=== PATIENT | female | born 1955 | race Caucasian/White ===

== ENCOUNTER 2018-03-22 16:22 | Emergency (ER) | payer OTHER ==
[~2018-03-22] VITALS: Ht 160 cm; Wt 64.4 kg
--- NOTE | ~2018-03-22 | EKG ---
[address] [address] ELECTROCARDIOGRAM REPORT Name: DOROTHY BLACK Room #: [facility]#: [id number] Admission: 03/22/18 Attend Phys: Discharge: 03/22/18 Date of : 51 Report #: [id number] THIS REPORT FOR: //name// [facility] ED Test Date: 2018-03-22 Test Time: 17:52:45 Pat Name: DOROTHY BLACK Department: Room: Gender: F Entry Table Operator: PARMJIT : 1955 Requested By: Leslie Jaimes Order Number: [id number] MD: Urbano Urbano Measurements Intervals [place] Rate: 76 P: 45 NM: 158 QRS: -2 QRSD: 92 T: 54 QT: 379 QTc: 427 Interpretive Statements Sinus rhythm Atrial premature complex Compared to ECG 09/11/2017 17:06:10 Atrial premature complex(es) now present Electronically Signed On 03-23-2018 8:19:43 CDT by Urbano Urbano [email or web address] <ELECTRONICALLY SIGNED> By: Urbano Urbano MD, [facility] 03/23/1819 51 51 Urbano Urbano MD, FAC /EPI
[~2018-03-22 16:22] MED LIST: FOSAMAX 70 MG T70 MG PO; KEFLEX500 M1 PO; LAMICTAL100 MG PO; LIPITOR 20 MG T20 M1 PO; MYRBETRIQ25 MG PO; OXCARBAZEPINE300 M1 PO; QUETIAPINE FUM100 MG PO; SINEMET 25-1001 EAC1 PO; SINGULAIR 10 MG10 M1 PO; SYNTHROID50 MCG PO
[2018-03-22] MEDS ORDERED: OXTELLAR XR600 MG PO (17:35)
[2018-03-22 17:37] LABS: ABSOLUTE NEUTROPHILS 2.6 thou/uL (1.4-8.2); BASOPHILS 0.8 % (0.0-2.0); EOSINOPHILS 1.6 % (0.0-3.0); HEMATOCRIT 42.4 % (37.0-47.0); LYMPHOCYTES 28.2 % (24.0-44.0); MCH 29.9 pg (26.0-34.0); MCHC 33.1 g/dL (28.0-37.0); MCV 90.2 fL (80.0-100.0); MONOCYTES 9.1 % (1.0-8.0); PLATELET COUNT 166 thou/uL (150-400); POLYS 60.3 % (36.0-66.0); RDW 13.6 % (10.5-14.5); WBC 4.3 thou/uL (4.0-11.0)
[2018-03-22] MEDS ORDERED: LUMIGAN2.5 M1 OPHTHALMIC (17:38)
[2018-03-22] MEDS ORDERED: PRAMIPEXOLE D0.25 MG PO (17:39)
[2018-03-22 17:48] LABS: CALCIUM 9.3 mg/dL (8.5-10.1); CREATININE 0.9 mg/dL (0.6-1.0)
[2018-03-22 19:36] LABS: URINE BILIRUBIN NEGATIVE (Negative); URINE BLOOD NEGATIVE (Negative); URINE CLARITY CLEAR; URINE GLUCOSE-RANDOM* NEGATIVE (Negative); URINE KETONES NEGATIVE (Negative); URINE LEUKOCYTES-REFLEX NEGATIVE (Negative); URINE NITRITE-REFLEX NEGATIVE (Negative); URINE PROTEIN (DIPSTICK) NEGATIVE (Negative); URINE SPECIFIC GRAVITY 1.025 (1.005-1.035); URINE UROBILINOGEN 0.2 E.U./dl (0.2-1.0)
[2018-03-22 19:39] LABS: URINE COLOR YELLOW
[2018-03-22] MEDS ORDERED: NORCO 5-325 TA1 EACH PO (19:59)
== END 2018-03-22 20:30 | disposition home or self-care (01) ==
LOC: ER 16:22
PROVIDERS: Emergency Medicine
DX: S01.511A Laceration without foreign body of lip, initial encounter (principal); R26.89 Other abnormalities of gait and mobility; M54.2 Cervicalgia; F31.9 Bipolar disorder, unspecified; G20 Parkinson's disease; W18.39XA Other fall on same level, initial encounter; Y92.89 Other specified places as the place of occurrence of the external cause; Y93.89 Activity, other specified; Y99.8 Other external cause status